=== PATIENT | female | born 1970 | race Caucasian/White ===

== ENCOUNTER 2022-04-07 12:31 | Emergency (ER) | payer BC ==
[2022-04-07 12:51] LABS: HEMOGLOBIN 12.6 gm/dl (12.3-15.3); RED BLOOD COUNT 4.26 M/UL (4.00-5.10); WHITE BLOOD COUNT 6.3 K/UL (4.5-11.0)
[2022-04-07 15:02] LABS: BUN/CREATININE RATIO 16 (0-10)
== END 2022-04-07 18:18 | disposition home or self-care (01) ==
LOC: ER1 12:31
DX: R07.9 Chest pain, unspecified (principal); E87.1 Hypo-osmolality and hyponatremia; E78.5 Hyperlipidemia, unspecified; I10 Essential (primary) hypertension; Z88.8 Allergy status to other drugs, medicaments and biological substances; Z79.82 Long term (current) use of aspirin; Z79.899 Other long term (current) drug therapy
CPT/HCPCS: 71045; 80053; 82550; 82553; 83605; 84484; 85025; 85379; 93005; 99285